=== PATIENT | male | born 1960 | race Caucasian/White ===

== ENCOUNTER 2020-05-30 13:28 | Inpatient (IN) | payer BC ==
[2020-05-30] MEDS ORDERED: NORMAL SALINE 1000 ML 1,000 ML IV ONE (14:07)
--- NOTE | 2020-05-30 14:09 | ER Document Report ---
ED Medical Screen (RME) - General Chief Complaint: Diarrhea Stated Complaint: COUGH,CONGESTION, FEVER Time Seen by Provider: 05/30/20 14:04 Information source: Patient Notes: Patient presents complaining of diarrhea that started yesterday. Patient denies any diarrhea episodes today. Patient states he has had a mild cough as well. Patient reports temperature of 99.9 at home. Patient denies any abdominal discomfort. Patient states he was concerned his symptoms may be his diverticulosis. Patient has an underlying history of diverticulosis, hypertension and diabetes. I have greeted and performed a rapid initial assessment of this patient. A comprehensive ED assessment and evaluation of the patient, analysis of test results and completion of the medical decision making process will be conducted by additional ED providers. Physical Exam - Vital signs Vitals: Temp Pulse Resp BP Pulse Ox 99.7 F 121 H 22 H 157/77 H 100 05/30/20 13:57 05/30/20 13:57 05/30/20 13:57 05/30/20 13:57 05/30/20 13:57 - Cardiovascular Rhythm: Tachycardia Heart sounds: S1 appreciated, S2 appreciated Course - Vital Signs Vital signs: Temp Pulse Resp BP Pulse Ox 99.7 F 121 H 22 H 157/77 H 100 05/30/20 13:57 05/30/20 13:57 05/30/20 13:57 05/30/20 13:57 05/30/20 13:57
--- NOTE | 2020-05-30 15:40 | RADIOLOGY REPORT (SQ) ---
EXAM DESCRIPTION: CHEST SINGLE VIEW IMAGES COMPLETED DATE/TIME: 05/30/2020 2:22 pm REASON FOR STUDY: cough COMPARISON: None. EXAM PARAMETERS: NUMBER OF VIEWS: One view. TECHNIQUE: Single frontal radiographic view of the chest acquired. RADIATION DOSE: NA LIMITATIONS: None. FINDINGS: LUNGS AND PLEURA: Lungs are hyperinflated. Biapical pleural and parenchymal scarring, sl ightly asymmetric on the right. Linear atelectasis/ scarring at the left mid lung. No focal consoli dation or pleural effusion. No pneumothorax. MEDIASTINUM AND HILAR STRUCTURES: No masses. Contour normal. HEART AND VASCULAR STRUCTURES: Heart normal in size. Normal vasculature. BONES: No acute findings. HARDWARE: None in the chest. OTHER: No other significant finding. IMPRESSION: No acute cardiopulmonary disease. Hyperinflated lungs which can be seen with obstructiv e lung disease. TECHNICAL DOCUMENTATION: JOB ID: [id number] 2010 [employer]- All Rights Reserved Reading location - IP/workstation name: [email or web address]
[2020-05-30 17:06] LABS: ALKALINE PHOSPHATASE 73 U/L (38-126); ANION GAP 9 (5-19); ASPARTATE AMINO TRANSFERASE 53 U/L (17-59); BILIRUBIN,DIRECT 0.6 mg/dL (0.0-0.4); BILIRUBIN,TOTAL 2.5 mg/dL (0.2-1.3); BLOOD UREA NITROGEN 21 mg/dL (7-20); CALCIUM 8.3 mg/dL (8.4-10.2); CARBON DIOXIDE 24 mmol/L (22-30); CHLORIDE 101 mmol/L (98-107); GLUCOSE 152 mg/dL (75-110); POTASSIUM 3.9 mmol/L (3.6-5.0); TOTAL PROTEIN 7.6 g/dL (6.3-8.2)
[2020-05-30 17:07] LABS: HEMATOCRIT 40.9 % (37.9-51.0); HEMOGLOBIN 14.1 g/dL (13.5-17.0); MEAN CORPUSCULAR HEMOGLOBIN 30.2 pg (27.0-33.4); MEAN CORPUSCULAR HGB CONC 34.6 g/dL (32.0-36.0); MEAN CORPUSCULAR VOLUME 87 fl (80-97); PLATELET COUNT 216 10^3/uL (150-450); RED BLOOD COUNT 4.69 10^6/uL (4.35-5.55); RED CELL DISTRIBUTION WIDTH 13.8 % (11.5-14.0); WHITE BLOOD COUNT 8.5 10^3/uL (4.0-10.5)
[2020-05-30 17:27] LABS: ABSOLUTE LYMPHOCYTES# (MANUAL) 0.2 10^3/uL (0.5-4.7); ABSOLUTE MONOCYTES # (MANUAL) 0.8 10^3/uL (0.1-1.4); BASOPHILS % (MANUAL) 0 % (0-2); EOSINOPHILS % (MANUAL) 0 % (0-6); LYMPHOCYTES % (MANUAL) 2 % (13-45); MONOCYTES % (MANUAL) 9 % (3-13); PLATELET COMMENT ADEQUATE; RBC MORPHOLOGY COMMENT NORMO-CYTIC/CHROMIC; SEGMENTED NEUTROPHILS % (MAN) 89 % (42-78); TOTAL CELLS COUNTED 100
--- NOTE | 2020-05-30 17:58 | ER Document Report ---
ED General - General Chief Complaint: Diarrhea Stated Complaint: COUGH,CONGESTION, FEVER Time Seen by Provider: 05/30/20 14:04 Primary Care Provider: AVILA BORJAS PA-C [Primary Care Provider] - Follow up as needed - [facility] Notes: Patient is a 59-year-old male with a past medical history of diabetes who presents with diarrhea. Patient states he had diarrhea yesterday. It was nonbloody. He states he had some abdominal pain that resolved. He is concerned that this is diverticulitis which he has had before. He mentions a low-grade fever yesterday of 100. He has no nausea or vomiting. He denies any contact with Covid patients. He has no cough or shortness of breath. Nothing makes the symptoms better or worse. - Related Data Allergies/Adverse Reactions: poison magnolia extract Allergy (Verified 05/30/20 14:09) Home Medications: metformin, HCTZ Past Medical History - General Information source: Patient - Social History Smoking Status: Current Every Day Smoker Frequency of alcohol use: Occasional Drug Abuse: None Family History: Reviewed & Not Pertinent Patient has homicidal ideation: No - Past Medical History Cardiac Medical History: Reports: Hx Hypertension Endocrine Medical History: Reports: Hx Diabetes Mellitus Type 2 Past Surgical History: Reports: Hx Rectal Surgery - colonoscopy Review of Systems - Review of Systems Notes: CONSTITUTIONAL: Positive for fatigue and low-grade fever. SKIN: No rash. HENT: No congestion, ear pain, or sore throat. CARDIOVASCULAR: No chest pain or edema. RESPIRATORY: No cough, shortness of breath, congestion, or wheezing. GASTROINTESTINAL: Positive for abdominal pain and diarrhea yesterday. GENITOURINARY: No dysuria. MUSCULOSKELETAL: No joint pain or swelling. NEUROLOGIC: No seizures. No headache, focal weakness or sensory changes. HEMATOLOGIC: No unusual bruising or bleeding. PSYCHIATRIC: No depression or anxiety. Physical Exam - Vital signs Vitals: Temp Pulse Resp BP Pulse Ox 99.7 F 121 H 22 H 157/77 H 100 05/30/20 13:57 05/30/20 13:57 05/30/20 13:57 05/30/20 13:57 05/30/20 13:57 - General General appearance: Appears well Notes: VITAL SIGNS: Tachycardia. GENERAL: No acute distress, non-toxic appearance. HEAD: Normal with no signs of head trauma. EYES: EOMI, conjunctiva normal, no discharge. EARS: Hearing grossly intact. NOSE: Normal. NECK: Normal range of motion, no tenderness, supple, no lymphadenopathy, No ad enopathy, no JVD. CHEST: Clear breath sounds bilaterally. No wheezes, rales, or rhonchi. CARDIAC: Regular rate and rhythm. VASCULAR: No Edema. ABDOMEN: Normal and soft with no tenderness, no masses or pulsatile masses. GENITOURINARY: Normal, No tenderness MUSCULOSKELETAL: Good range of motion of all major joints. Extremities without clubbing, cyanosis or edema. NEUROLOGICAL: Alert and oriented x 3. No focal sensory or strength deficits. Speech normal. Follows commands appropriately. PSYCHIATRIC: Normal Affect, judgement and mood. SKIN: Normal appearance with no rashes or lesions. Course - Re-evaluation Re-evalutation: 05/30/20 17:58 He is concerned about diverticulitis because he was having abdominal pain and diarrhea. Still mildly tachycardic. I will obtain a CT scan. Patient will also be tested for Covid. Patient CT scan is concerning for mild diverticulitis. He also has concern for a thrombosis of his inferior mesenteric artery. I did call vascular at [facility] and spoke with Dr. Ruiz. He recommended that we start him on heparin bolus and drip. He also recommended bowel rest and fluids. He recommended a repeat study to ensure that the thrombosis has resolved. He does not think he needs to be transferred as they would not do surgery on this. This is to be managed medically per vascular. I did discuss with the hospitalist who is in agreement. Patient is also in agreement. He will be treated for his diverticulitis with antibiotics. His heart rate has improved with fluids. He continues to be in no acute distress. 05/30/20 21:10 - Vital Signs Vital signs: Temp Pulse Resp BP Pulse Ox 98.6 F 109 H 18 126/73 H 95 05/30/20 19:51 05/30/20 19:51 05/30/20 19:51 05/30/20 19:51 05/30/20 19:51 - Laboratory Result Diagrams: 05/30/20 16:28 05/30/20 16:28 Laboratory results interpreted by me: 05/30/20 05/30/20 16:28 16:28 Seg Neuts % (Manual) 89 H Lymphocytes % (Manual) 2 L Abs Lymphs (Manual) 0.2 L Sodium 133.6 L BUN 21 H Glucose 152 H Calcium 8.3 L Total Bilirubin 2.5 H Direct Bilirubin 0.6 H ALT 52 H - Diagnostic Test Radiology reviewed: Image reviewed, Reports reviewed - EKG Interpretation by Me EKG shows normal: Sinus rhythm Rate: Tachycardia Rhythm: NSR When compared to previous EKG there are: Previous EKG unavailable Additional EKG results interpreted by me: 05/30/20 17:54 Sinus tachycardia at a rate of 119. QTc 434. No acute ST changes. Previous EKG is unavailable. Discharge - Discharge Clinical Impression: Diverticulitis, Tachycardia, Inferior mesenteric vein thrombosis Condition: Stable Disposition: ADMITTED INPATIENT Admitting Provider: Nate (Hospitalist) Unit Admitted: Medical Floor Referrals: AVILA BORJAS PA-C [Primary Care Provider] - Follow up as needed
--- NOTE | 2020-05-30 19:34 | RADIOLOGY REPORT (SQ) ---
EXAM DESCRIPTION: CT ABD/PELVIS WITH IV ONLY IMAGES COMPLETED DATE/TIME: 05/30/2020 7:07 pm REASON FOR STUDY: abdominal pain, diarrhea COMPARISON: None. TECHNIQUE: CT scan of the abdomen and pelvis performed using helical scanning technique with dynamic intravenous contrast injection. No oral contrast. Images reviewed with lung, soft tissue, and bone windows. Reconstructed coronal and sagittal MPR images reviewed. Delayed images for evaluation of the urinary system also acquired. All images stored on PACS. All CT scanners at this facility use dose modulation, iterative reconstruction, and/or weight based d osing when appropriate to reduce radiation dose to as low as reasonably achievable (ALARA). [facility]: Dose Right [facility]: CareDose [facility]: Dose Right [facility]: Teradose 4D [facility]: Mobento CONTRAST TYPE AND DOSE: Contrast/concentration: Isovue 350.00 mmol/ml; Total Contrast Delivered: 100 .0 ml; Total Saline Delivered: 70.0 ml RENAL FUNCTION: Creatinine 1.17 milligrams/deciliter. RADIATION DOSE: CT Rad equipment meets quality standard of care and radiation dose reduction techniq ues were employed. CTDIvol: 18.0 - 20.6 mGy. DLP: 2218 mGy-cm. LIMITATIONS: None. FINDINGS: LOWER CHEST: Sizable subpleural bleb in the anterior aspect of the left hemithorax. LIVER: The relative low attenuation of the hepatic parenchyma compared to the splenic parenchyma on t he portal venous phase is suggestive of underlying hepatic steatosis. The portal veins are patent. There is no hepatic mass. SPLEEN: 24 x 19 mm accessory splenule medial to the spleen. There is no splenomegaly or splenic mass . PANCREAS: No acute gross abnormality of the pancreas. GALLBLADDER: No acute gross abnormality of the gallbladder. ADRENAL GLANDS: 32 x 26 mm left adrenal myelolipoma. RIGHT KIDNEY AND URETER: No solid mass, hydronephrosis, nephrolithiasis, hydroureter or ureterolithia sis. LEFT KIDNEY AND URETER: No solid mass, hydronephrosis, nephrolithiasis, hydroureter or ureterolithias is. AORTA AND VESSELS: Mild atherosclerotic calcification of the abdominal aorta. There is stranding of the fat around the inferior mesenteric vein (image 39 of series 601). RETROPERITONEUM: No retroperitoneal adenopathy, hemorrhage or mass. BOWEL AND PERITONEAL CAVITY: Short segment of bowel wall thickening involving a portion of the proxim al sigmoid colon (image 73 of series 4) that contains several diverticula. There is no associated ob struction, free intraperitoneal fluid, extra- luminal abscess, pneumatosis or free intraperitoneal ga s. APPENDIX: Normal. PELVIS: The urinary bladder is contracted. ABDOMINAL WALL: The inguinal canals are patulous. BONES: Chronic fractures of the right 8th and 9th ribs. OTHER: No other findings. IMPRESSION: 1. Short segment of bowel wall thickening involving a portion of the proximal sigmoid c olon (image 73 of series 4) that contains several diverticula. Correlate with clinical findings to e xclude an early diverticulitis. 2. Stranding of the fat around the inferior mesenteric vein (image 39 of series 601) concerning for thrombosis of the vessel. 3. 32 x 26 mm left adrenal myelolipoma. 4. Hepatic steatosis. TECHNICAL DOCUMENTATION: JOB ID: [id number] Quality ID # [id number]: Final reports with documentation of one or more dose reduction techniques (e.g., Au tomated exposure control, adjustment of the mA and/or kV according to patient size, use of iterative reconstruction technique) 2010 [employer]- All Rights Reserved Reading location - IP/workstation name: [email or web address]
--- NOTE | 2020-05-30 19:42 | EKG REPORT ---
SEVERITY:- OTHERWISE NORMAL ECG - SINUS TACHYCARDIA LOW VOLTAGE IN FRONTAL LEADS : Confirmed by: Bert Zavala MD 30-May-2020 19:41:35
[2020-05-30] MEDS ORDERED: METRONIDAZOLE 500 MG/NS RTU 500 MG/100 ML RTUPB IV ONE (19:57)
[2020-05-30] MEDS ORDERED: CEFTRIAXONE 1 GM/D5W RTU 1 GM/50 ML RTUPB IV ONE (19:57)
[2020-05-30] MEDS ORDERED: HEPARIN SOD (PORCINE) 1,000 UNIT/ML 10 ML VIAL IV ONE (20:14)
[2020-05-30 20:22] LABS: INTERNATIONAL RATION (INR) 1.03; PROTHROMBIN TIME 13.7 SEC (11.4-15.4)
[2020-05-30] MEDS ORDERED: MAG HYDROX/AL HYDROX/SIMETH SUSP 30 ML UDCUP PO PRN (21:00)
[2020-05-30] MEDS ORDERED: ONDANSETRON HCL INJ/PF 4 MG/2 ML SDV IV PRN (21:00)
[2020-05-30] MEDS ORDERED: ACETAMINOPHEN 325 MG TABLET PO PRN ×2 (21:11→21:20)
[2020-05-30] MEDS ORDERED: DEXTROSE 50%-WATER 25 GM/50 ML DISP.SYRIN IV PRN ×2 (21:12)
[2020-05-30] MEDS ORDERED: DEXTROSE 40% GEL 15 GM TUBE PO PRN ×2 (21:12)
[2020-05-30] MEDS ORDERED: GLUCAGON,HUMAN RECOMB 1 MG INJ IM PRN (21:12)
[2020-05-30] MEDS: HEPARIN SODIUM,PORCINE/D5W 25,000 UNIT/250 ML RTUINJ IV PRN (21:25)
[2020-05-30] MEDS ORDERED: ALBUTEROL SULFATE HFA (90 MCG/PUFF) 8 GM MDI IH PRN (21:33)
[2020-05-30] MEDS ORDERED: NICOTINE 14 MG/24 HR PATCH.TD24 TD PRN (21:33)
--- NOTE | 2020-05-30 21:33 | PDOC H&P ---
History of Present Illness Admission Date/PCP: AVILA BORJAS PA-C Patient complains of: Diarrhea and fever History of Present Illness: ALYSE RAYGOZA is a 59 year old male with history of diverticulitis, diabetes mellitus, hypertension, who presents to the hospital for evaluation of fever and diarrhea. This started 2 days ago. He felt he was having another acute attack of his diverticulitis. He did experience some chills. The diarrhea seems to be resolving. He denies having any abdominal pain. Did have an episode of fever earlier today at home. In the ER he has not been quite noted to be febrile just yet highest temperature was 99.7F. Denies nausea or vomiting. He denies any sick contacts. Abdominal CT in the ER revealed possible early diverticulitis but also picked up mesenteric vein thrombosis. ER provider consulted with vascular surgeon at [place] Dr. Ruiz who recommended that patient did not need transfer the patient should be admitted to the hospital for medical management with heparin drip and monitored for any complications and possibly may need a repeat CT to reevaluate thrombus. Past Medical History Cardiac Medical History: Reports: Hypertension Endocrine Medical History: Reports: Diabetes Mellitus Type 2 Past Surgical History Past Surgical History: Reports: Other Social History Smoking Status: Current Every Day Smoker Electronic Cigarette use?: Yes Frequency of Alcohol Use: None Hx Recreational Drug Use: No - Advance Directive Resuscitation Status: Full Code Family History Family History: Hypertension Parental Family History Reviewed: Yes Children Family History Reviewed: Yes Sibling(s) Family History Reviewed.: Yes Medication/Allergy Allergies/Adverse Reactions: poison magnolia extract Allergy (Verified 05/30/20 14:09) Review of Systems Constitutional: PRESENT: chills, fever(s) Eyes: ABSENT: visual disturbances Ears: ABSENT: hearing changes Nose, Mouth, and Throat: ABSENT: headache(s), sore throat Cardiovascular: ABSENT: chest pain Respiratory: ABSENT: cough, dyspnea, sputum Gastrointestinal: PRESENT: diarrhea. ABSENT: abdominal pain, hematemesis, hematochezia, nausea, vomiting Genitourinary: ABSENT: dysuria Integumentary: ABSENT: diaphoresis Neurological: ABSENT: dizziness Endocrine: ABSENT: polyuria Allergic/Immunologic: PRESENT: other - Denies any rhinorrhea or sinus congestion Physical Exam Vital Signs: Temp Pulse Resp BP Pulse Ox 98.6 F 109 H 18 126/73 H 95 05/30/20 19:51 05/30/20 19:51 05/30/20 19:51 05/30/20 19:51 05/30/20 19:51 Intake & Output 05/29/20 05/30/20 05/31/20 06:59 06:59 06:59 Intake Total 1050 Balance 1050 Weight 124.3 kg General appearance: PRESENT: no acute distress, cooperative Mouth exam: PRESENT: neck supple Neck exam: ABSENT: JVD Respiratory exam: PRESENT: clear to auscultation nael, symmetrical, unlabored. ABSENT: tachypnea, wheezes Cardiovascular exam: PRESENT: RRR, +S1, +S2. ABSENT: tachycardia GI/Abdominal exam: PRESENT: normal bowel sounds, soft. ABSENT: ascites, distended, firm, guarding, rebound, rigid, tenderness Extremities exam: PRESENT: pedal edema Musculoskeletal exam: PRESENT: ambulatory Neurological exam: PRESENT: alert, awake, oriented to person, oriented to place, oriented to time, oriented to situation Psychiatric exam: ABSENT: agitated, anxious Focused psych exam: ABSENT: pressured speech Skin exam: ABSENT: jaundice Results Laboratory Results: 05/30/20 16:28 05/30/20 16:28 05/30/20 05/30/20 16:28 16:28 WBC 8.5 RBC 4.69 Hgb 14.1 Hct 40.9 MCV 87 MCH 30.2 MCHC 34.6 RDW 13.8 Plt Count 216 Seg Neutrophils % Not Reportable Sodium 133.6 L Potassium 3.9 Chloride 101 Carbon Dioxide 24 Anion Gap 9 BUN 21 H Creatinine 1.17 Est GFR ( Amer) > 60 Glucose 152 H Calcium 8.3 L Magnesium 1.9 Total Bilirubin 2.5 H AST 53 Alkaline Phosphatase 73 Total Protein 7.6 Albumin 4.0 05/30/20 16:28 Troponin I 0.013 Impressions: Chest X-Ray 05/30/20 14:07 IMPRESSION: No acute cardiopulmonary disease. Hyperinflated lungs which can be seen with obstructive lung disease. Abdomen/Pelvis CT 05/30/20 17:46 IMPRESSION: 1. Short segment of bowel wall thickening involving a portion of the proximal sigmoid colon (image 73 of series 4) that contains several diverticula. Correlate with clinical findings to exclude an early diverticulitis. 2. Stranding of the fat around the inferior mesenteric vein (image 39 of series 601) concerning for thrombosis of the vessel. 3. 32 x 26 mm left adrenal myelolipoma. 4. Hepatic steatosis. Assessment and Plan - Diagnosis (1) Inferior mesenteric vein thrombosis Is this a current diagnosis for this admission?: Yes Plan: CT of the abdomen picked up stranding around the inferior mesenteric vein concerning for thrombosis. Patient currently is asymptomatic however and not experiencing any pain. Will follow recommendations of Dr. Ruiz [vascular surgeon] and initiate patient on heparin drip and admit for monitoring. I discussed with surgery who is in agreement with plan and will follow along to help guide disposition. Monitor CBC Bowel rest for now Antibiotics (2) Acute diverticulitis Is this a current diagnosis for this admission?: Yes Plan: Currently his diverticulitis is quite mild. We will continue him on IV antibiotics though he could probably be transitioned to p.o very soon. Antiemetics if needed. (3) Fever Qualifiers: Fever type: unspecified Qualified Code(s): R50.9 - Fever, unspecified Is this a current diagnosis for this admission?: Yes Plan: Reportedly had a fever at home. So far has not had a fever yet here. May be from his early diverticulitis or other etiology. He was tested for COVID-19 and will follow up the results. Chest x-ray is negative for any evidence of pneumonia and just shows hyperinflated lungs suggestive of COPD. Denies cough. Follow-up blood culture. (4) Tobacco abuse Is this a current diagnosis for this admission?: Yes Plan: Nicotine patch offered (5) Diabetes mellitus type 2 in obese Is this a current diagnosis for this admission?: Yes Plan: Takes metformin at home. Sliding scale insulin and Accu-Cheks while inpatient. (6) Obesity (BMI 30-39.9) Is this a current diagnosis for this admission?: Yes - Time Time Spent with patient: 35 or more minutes Anticipated Discharge Disposition: Home, Self Care Anticipated Discharge Timeframe: within 48 hours
[2020-05-30] MEDS: FAMOTIDINE INJ/PF 20 MG/2 ML SDV IV SCH (21:46)
[2020-05-30] MEDS ORDERED: HEPARIN SOD (PORCINE) 1,000 UNIT/ML 10 ML VIAL IV PRN (23:16)
[2020-05-31] MEDS: METRONIDAZOLE 500 MG/NS RTU 500 MG/100 ML RTUPB IV SCH ×5 (01:23→23:58)
[2020-05-31] MEDS: NORMAL SALINE 1000 ML 1,000 ML IV PRN ×3 (01:23→23:58)
[2020-05-31] MEDS: INSULIN LISPRO 100 UNIT/ML 3 ML VIAL SUBCUT SCH ×4 (03:11→18:15)
[2020-05-31 03:20] LABS: HEMOGLOBIN 12.5 g/dL (13.5-17.0); MEAN CORPUSCULAR HEMOGLOBIN 29.6 pg (27.0-33.4); MEAN CORPUSCULAR HGB CONC 34.7 g/dL (32.0-36.0); MEAN CORPUSCULAR VOLUME 85 fl (80-97); PLATELET COUNT 180 10^3/uL (150-450); RED BLOOD COUNT 4.21 10^6/uL (4.35-5.55); RED CELL DISTRIBUTION WIDTH 13.8 % (11.5-14.0); WHITE BLOOD COUNT 8.1 10^3/uL (4.0-10.5)
[2020-05-31 03:55] LABS: ANION GAP 11 (5-19); BLOOD UREA NITROGEN 20 mg/dL (7-20); CALCIUM 7.6 mg/dL (8.4-10.2); CARBON DIOXIDE 21 mmol/L (22-30); CHLORIDE 103 mmol/L (98-107); GLUCOSE 133 mg/dL (75-110); PHOSPHORUS 2.6 mg/dL (2.5-4.5); POTASSIUM 3.3 mmol/L (3.6-5.0)
[2020-05-31 04:03] LABS: A TYPE INFLUENZA AG NEGATIVE (NEGATIVE); B INFLUENZA AG NEGATIVE (NEGATIVE)
[2020-05-31 04:57] LABS: D-DIMER 1.69 ug/mL (0.00-0.50)
--- NOTE | 2020-05-31 06:50 | PDOC CONSULTATION ---
Consultation Consult Date: 05/31/20 Provider Consulted: SURGICAL SURGICALIST MD Consult reason:: IMV thrombosis History of Present Illness Admission Date/PCP: 05/30/20 21:21 AVILA BORJAS PA-C History of Present Illness: ALYSE RAYGOZA is a 59 year old male seen in consultation at the request of the hospitalist service. The patient reports a 2-day history of fever and intermittent diarrhea. He denies any abdominal pain, melena, hematochezia, hematemesis, chest pain, shortness of breath, headache, blurry vision, dizziness, orthostasis. He denies any left lower quadrant abdominal cramping. He presented to the hospital last night because he wanted "to be tested for Covid" due to his fevers and diarrhea. He has had diverticulitis in the past. He denies any sick contacts. He does use e-cigarettes. Past Medical History Cardiac Medical History: Reports: Hypertension Endocrine Medical History: Reports: Diabetes Mellitus Type 2 Psychiatric Medical History: Denies: Depression Past Surgical History Past Surgical History: Reports: Other Social History Smoking Status: Former Smoker Electronic Cigarette use?: Yes Frequency of Alcohol Use: None Hx Recreational Drug Use: No Drugs: None - Advance Directive Resuscitation Status: Full Code Family History Family History: Hypertension Parental Family History Reviewed: Yes Children Family History Reviewed: Yes Sibling(s) Family History Reviewed.: Yes Medication/Allergy Home Medications: Hydrochlorothiazide 12.5 mg PO DAILY 05/30/20 Metformin HCl [Metformin HCl ER] 500 mg PO DAILY 05/30/20 Allergies/Adverse Reactions: poison magnolia extract Allergy (Verified 05/30/20 14:09) Review of Systems Constitutional: PRESENT: fever(s). ABSENT: anorexia, chills, fatigue, headache(s), night sweats Eyes: ABSENT: visual disturbances Ears: ABSENT: hearing changes Nose, Mouth, and Throat: ABSENT: sore throat Cardiovascular: ABSENT: chest pain Respiratory: ABSENT: cough, dyspnea Gastrointestinal: PRESENT: diarrhea. ABSENT: abdominal pain, bloating, hematemesis, hematochezia, melena, nausea, vomiting Genitourinary: ABSENT: dysuria Musculoskeletal: ABSENT: back pain Neurological: ABSENT: confusion, convulsions, dizziness Psychiatric: ABSENT: anxiety, depression Endocrine: ABSENT: cold intolerance, heat intolerance Hematologic/Lymphatic: ABSENT: easy bleeding, easy bruising Physical Exam Vital Signs: Temp Pulse Resp BP Pulse Ox 98.5 F 100 18 131/69 H 99 05/31/20 05:24 05/31/20 03:44 05/31/20 03:44 05/31/20 03:44 05/31/20 03:44 Intake & Output 05/29/20 05/30/20 05/31/20 06:59 06:59 06:59 Intake Total 1377 Output Total 0 Balance 1377 Weight 123.5 kg General appearance: PRESENT: no acute distress, obese Head exam: PRESENT: atraumatic, normocephalic Eye exam: PRESENT: EOMI, PERRLA. ABSENT: scleral icterus Mouth exam: PRESENT: moist, neck supple Neck exam: ABSENT: meningismus, tenderness, thyromegaly, tracheal deviation Respiratory exam: PRESENT: unlabored. ABSENT: tachypnea, wheezes Cardiovascular exam: ABSENT: tachycardia Pulses: PRESENT: normal radial pulses Vascular exam: PRESENT: normal capillary refill GI/Abdominal exam: PRESENT: soft. ABSENT: distended, firm, guarding, rebound, rigid, tenderness Rectal exam: PRESENT: deferred Extremities exam: ABSENT: clubbing Musculoskeletal exam: ABSENT: deformity Neurological exam: PRESENT: alert, awake, oriented to person, oriented to place, oriented to time, oriented to situation, CN II-XII grossly intact Psychiatric exam: ABSENT: agitated, anxious, depressed Focused psych exam: ABSENT: delusional Skin exam: ABSENT: cyanosis, erythema, jaundice Results Laboratory Results: 05/31/20 03:12 05/31/20 03:12 05/30/20 05/30/20 05/31/20 16:28 16:28 03:12 WBC 8.5 8.1 RBC 4.69 4.21 L Hgb 14.1 12.5 L Hct 40.9 36.0 L MCV 87 85 MCH 30.2 29.6 MCHC 34.6 34.7 RDW 13.8 13.8 Plt Count 216 180 Seg Neutrophils % Not Reportable Sodium 133.6 L Potassium 3.9 Chloride 101 Carbon Dioxide 24 Anion Gap 9 BUN 21 H Creatinine 1.17 Est GFR ( Amer) > 60 Glucose 152 H Calcium 8.3 L Phosphorus Magnesium 1.9 Total Bilirubin 2.5 H AST 53 Alkaline Phosphatase 73 Total Protein 7.6 Albumin 4.0 05/31/20 03:12 WBC RBC Hgb Hct MCV MCH MCHC RDW Plt Count Seg Neutrophils % Sodium 134.7 L Potassium 3.3 L Chloride 103 Carbon Dioxide 21 L Anion Gap 11 BUN 20 Creatinine 0.88 Est GFR ( Amer) > 60 Glucose 133 H Calcium 7.6 L Phosphorus 2.6 Magnesium 1.6 Total Bilirubin AST Alkaline Phosphatase Total Protein Albumin 05/30/20 16:28 Troponin I 0.013 Impressions: Chest X-Ray 05/30/20 14:07 IMPRESSION: No acute cardiopulmonary disease. Hyperinflated lungs which can be seen with obstructive lung disease. Abdomen/Pelvis CT 05/30/20 17:46 IMPRESSION: 1. Short segment of bowel wall thickening involving a portion of the proximal sigmoid colon (image 73 of series 4) that contains several diverticula. Correlate with clinical findings to exclude an early diverticulitis. 2. Stranding of the fat around the inferior mesenteric vein (image 39 of series 601) concerning for thrombosis of the vessel. 3. 32 x 26 mm left adrenal myelolipoma. 4. Hepatic steatosis. Assessment & Plan - Diagnosis (1) Acute diverticulitis Is this a current diagnosis for this admission?: Yes (2) Inferior mesenteric vein thrombosis Is this a current diagnosis for this admission?: Yes - Plan Summary Plan Summary: 59-year-old male with mild diverticulitis and a likely inferior mesenteric vein thrombosis. The patient has no abdominal pain. Continue with supportive care, antibiotics, IV fluids, and heparinization. At present, the patient has no abdominal symptomatology. As long as his symptoms continue to be mild, he may be discharged home with antibiotics and anticoagulation. Surgery will continue to follow closely with you.
[2020-05-31 07:45] LABS: APPEARANCE,URINE CLEAR; BILIRUBIN,URINE NEGATIVE (NEGATIVE); COLOR,URINE AMBER; GLUCOSE, URINE NEGATIVE (NEGATIVE); KETONES,URINE NEGATIVE (NEGATIVE); LEUKOCYTE ESTERASE,URINE TRACE (NEGATIVE); NITRITE,URINE NEGATIVE (NEGATIVE); PROTEIN,URINE 100 mg/dL (NEGATIVE); URINE SPECIFIC GRAVITY 1.049
[2020-05-31] MEDS ORDERED: INFLUENZA QUAD (6MOS+) 2020-21 VAC 0.5 ML SYR IM ONE (08:00)
[2020-05-31] MEDS: HYDROCHLOROTHIAZIDE 25 MG TABLET PO SCH (09:39)
[2020-05-31] MEDS: FAMOTIDINE INJ/PF 20 MG/2 ML SDV IV SCH ×2 (09:40→21:02)
[2020-05-31] MEDS: HEPARIN SODIUM,PORCINE/D5W 25,000 UNIT/250 ML RTUINJ IV PRN (12:26)
--- NOTE | 2020-05-31 14:57 | PDOC PROGRESS REPORT ---
Subjective Date:: 05/31/20 Subjective:: History of Present Illness: ALYSE RAYGOZA is a 59 year old male with history of diverticulitis, diabetes mellitus, hypertension, who presents to the hospital for evaluation of fever and diarrhea. This started 2 days ago. He felt he was having another acute attack of his diverticulitis. He did experience some chills. The diarrhea seems to be resolving. He denies having any abdominal pain. Did have an episode of fever earlier today at home. In the ER he has not been quite noted to be febrile just yet highest temperature was 99.7F. Denies nausea or vomiting. He denies any sick contacts. Abdominal CT in the ER revealed possible early diverticulitis but also picked up mesenteric vein thrombosis. ER provider consulted with vascular surgeon at [place] Dr. Ruiz who recommended that patient did not need transfer the patient should be admitted to the hospital for medical management with heparin drip and monitored for any complications and possibly may need a repeat CT to reevaluate thrombus. Hospital course: 05/31/2020: Patient seen and examined. He is comfortable. Essentially has no symptoms. Reason For Visit: MESENTERIC VEIN THROMBOSIS,FEVER,DIVERTICULITIS Physical Exam Vital Signs: Temp Pulse Resp BP Pulse Ox 98.5 F 93 18 119/55 L 96 05/31/20 10:00 05/31/20 07:26 05/31/20 07:26 05/31/20 07:26 05/31/20 07:26 Intake & Output 05/30/20 05/31/20 06/01/20 06:59 06:59 06:59 Intake Total 1477 1188 Output Total 0 575 Balance 1477 613 Weight 272 lb 4.334 oz Exam: General appearance: PRESENT: no acute distress, cooperative Mouth exam: PRESENT: neck supple Neck exam: ABSENT: JVD Respiratory exam: PRESENT: clear to auscultation nael, symmetrical, unlabored. ABSENT: tachypnea, wheezes Cardiovascular exam: PRESENT: RRR, +S1, +S2. ABSENT: tachycardia GI/Abdominal exam: PRESENT: normal bowel sounds, soft. ABSENT: ascites, dis tended, firm, guarding, rebound, rigid, tenderness Extremities exam: PRESENT: pedal edema Musculoskeletal exam: PRESENT: ambulatory Neurological exam: PRESENT: alert, awake, oriented to person, oriented to place, oriented to time, oriented to situation Psychiatric exam: ABSENT: agitated, anxious Focused psych exam: ABSENT: pressured speech Skin exam: ABSENT: jaundice Results Laboratory Results: 05/31/20 03:12 05/31/20 03:12 05/30/20 05/30/20 05/31/20 16:28 16:28 03:12 WBC 8.5 8.1 RBC 4.69 4.21 L Hgb 14.1 12.5 L Hct 40.9 36.0 L MCV 87 85 MCH 30.2 29.6 MCHC 34.6 34.7 RDW 13.8 13.8 Plt Count 216 180 Seg Neutrophils % Not Reportable Sodium 133.6 L Potassium 3.9 Chloride 101 Carbon Dioxide 24 Anion Gap 9 BUN 21 H Creatinine 1.17 Est GFR ( Amer) > 60 Glucose 152 H Calcium 8.3 L Phosphorus Magnesium 1.9 Total Bilirubin 2.5 H AST 53 Alkaline Phosphatase 73 Total Protein 7.6 Albumin 4.0 Urine Color Urine Appearance Urine pH Ur Specific [place] Urine Protein Urine Glucose (UA) Urine Ketones Urine Blood Urine Nitrite Ur Leukocyte Esterase Urine WBC (Auto) Urine RBC (Auto) 05/31/20 05/31/20 03:12 06:45 WBC RBC Hgb Hct MCV MCH MCHC RDW Plt Count Seg Neutrophils % Sodium 134.7 L Potassium 3.3 L Chloride 103 Carbon Dioxide 21 L Anion Gap 11 BUN 20 Creatinine 0.88 Est GFR ( Amer) > 60 Glucose 133 H Calcium 7.6 L Phosphorus 2.6 Magnesium 1.6 Total Bilirubin AST Alkaline Phosphatase Total Protein Albumin Urine Color DIAMOND Urine Appearance CLEAR Urine pH 5.0 Ur Specific [place] 1.049 Urine Protein 100 H Urine Glucose (UA) NEGATIVE Urine Ketones NEGATIVE Urine Blood SMALL H Urine Nitrite NEGATIVE Ur Leukocyte Esterase TRACE H Urine WBC (Auto) 3 Urine RBC (Auto) 13 05/30/20 16:28 Troponin I 0.013 Impressions: Chest X-Ray 05/30/20 14:07 IMPRESSION: No acute cardiopulmonary disease. Hyperinflated lungs which can be seen with obstructive lung disease. Abdomen/Pelvis CT 05/30/20 17:46 IMPRESSION: 1. Short segment of bowel wall thickening involving a portion of the proximal sigmoid colon (image 73 of series 4) that contains several diverticula. Correlate with clinical findings to exclude an early diverticulitis. 2. Stranding of the fat around the inferior mesenteric vein (image 39 of series 601) concerning for thrombosis of the vessel. 3. 32 x 26 mm left adrenal myelolipoma. 4. Hepatic steatosis. Assessment and Plan - Plan Summary Summary: (1) Inferior mesenteric vein thrombosis CT of the abdomen picked up stranding around the inferior mesenteric vein concerning for thrombosis. Patient currently is asymptomatic however and not experiencing any pain. Will follow recommendations of Dr. Ruiz [vascular surgeon] and initiate patient on heparin drip and admit for monitoring. Minimal to no symptoms at the moment. Discharge once cleared by surgery. (2) Acute diverticulitis Currently his diverticulitis is quite mild. We will continue him on IV antibiotics though he could probably be transitioned to p.o very soon. Antiemetics if needed. (3) Fever Reportedly had a fever at home. So far has not had a fever yet here. May be from his early diverticulitis or other etiology. He was tested for COVID-19 and will follow up the results. Chest x-ray is negative for any evidence of pneumonia and just shows hyperinflated lungs suggestive of COPD. Denies cough. Follow-up blood culture. (4) Tobacco abuse Nicotine patch offered (5) Diabetes mellitus type 2 in obese Takes metformin at home. Sliding scale insulin and Accu-Cheks while inpatient. (6) Obesity (BMI 30-39.9) Patient was counseled - Time Anticipated Discharge Disposition: Home, Self Care Anticipated Discharge Timeframe: within 72 hours
[2020-05-31] MEDS ORDERED: CEFTRIAXONE 2 GM/D5W RTU 2 GM/50 ML RTUPB IV SCH (18:00)
[2020-06-01] MEDS: INSULIN LISPRO 100 UNIT/ML 3 ML VIAL SUBCUT SCH ×2 (00:06→06:36)
[2020-06-01] MEDS: HEPARIN SODIUM,PORCINE/D5W 25,000 UNIT/250 ML RTUINJ IV PRN (02:14)
[2020-06-01] MEDS: METRONIDAZOLE 500 MG/NS RTU 500 MG/100 ML RTUPB IV SCH (05:15)
[2020-06-01 05:56] LABS: APPEARANCE,URINE CLEAR; BILIRUBIN,URINE NEGATIVE (NEGATIVE); COLOR,URINE AMBER; GLUCOSE, URINE NEGATIVE (NEGATIVE); KETONES,URINE 20 mg/dL (NEGATIVE); LEUKOCYTE ESTERASE,URINE SMALL (NEGATIVE); NITRITE,URINE NEGATIVE (NEGATIVE); PROTEIN,URINE 30 mg/dL (NEGATIVE)
[2020-06-01 06:13] LABS: HEMATOCRIT 32.7 % (37.9-51.0); HEMOGLOBIN 11.4 g/dL (13.5-17.0); MEAN CORPUSCULAR HGB CONC 34.8 g/dL (32.0-36.0); MEAN CORPUSCULAR VOLUME 86 fl (80-97); PLATELET COUNT 199 10^3/uL (150-450); RED BLOOD COUNT 3.79 10^6/uL (4.35-5.55); RED CELL DISTRIBUTION WIDTH 13.5 % (11.5-14.0); WHITE BLOOD COUNT 5.9 10^3/uL (4.0-10.5)
[2020-06-01] MEDS: HYDROCHLOROTHIAZIDE 25 MG TABLET PO SCH (09:50)
[2020-06-01] MEDS: FAMOTIDINE INJ/PF 20 MG/2 ML SDV IV SCH (09:51)
--- NOTE | 2020-06-01 11:14 | PDOC PROGRESS REPORT ---
Subjective Date:: 06/01/20 Subjective:: Patient comfortable, denies abdominal pain nausea vomiting, reports normal bowel movement today with soft stools no blood noted, feels hungry Reason For Visit: MESENTERIC VEIN THROMBOSIS,FEVER,DIVERTICULITIS Physical Exam Vital Signs: Temp Pulse Resp BP Pulse Ox 97.4 F 78 18 143/89 H 97 06/01/20 10:00 06/01/20 08:17 06/01/20 08:17 06/01/20 08:17 06/01/20 08:17 Intake & Output 05/31/20 06/01/20 06/02/20 06:59 06:59 06:59 Intake Total 1477 2659 100 Output Total 0 1375 Balance 1477 1284 100 Weight 123.5 kg 109.4 kg General appearance: PRESENT: no acute distress, cooperative, obese Respiratory exam: PRESENT: clear to auscultation nael Cardiovascular exam: PRESENT: RRR GI/Abdominal exam: PRESENT: normal bowel sounds - Present, soft, tenderness - None Results Laboratory Results: 06/01/20 05:29 05/31/20 03:12 06/01/20 06/01/20 04:50 05:29 WBC 5.9 RBC 3.79 L Hgb 11.4 L Hct 32.7 L MCV 86 MCH 30.0 MCHC 34.8 RDW 13.5 Plt Count 199 Urine Color DIAMOND Urine Appearance CLEAR Urine pH 5.0 Ur Specific [place] 1.020 Urine Protein 30 H Urine Glucose (UA) NEGATIVE Urine Ketones 20 H Urine Blood SMALL H Urine Nitrite NEGATIVE Ur Leukocyte Esterase SMALL H Urine WBC (Auto) 3 Urine RBC (Auto) 3 05/30/20 16:28 Troponin I 0.013 Impressions: Chest X-Ray 05/30/20 14:07 IMPRESSION: No acute cardiopulmonary disease. Hyperinflated lungs which can be seen with obstructive lung disease. Abdomen/Pelvis CT 05/30/20 17:46 IMPRESSION: 1. Short segment of bowel wall thickening involving a portion of the proximal sigmoid colon (image 73 of series 4) that contains several diverticula. Correlate with clinical findings to exclude an early diverticulitis. 2. Stranding of the fat around the inferior mesenteric vein (image 39 of series 601) concerning for thrombosis of the vessel. 3. 32 x 26 mm left adrenal myelolipoma. 4. Hepatic steatosis. Assessment & Plan - Diagnosis (1) chronic diverticulitis Is this a current diagnosis for this admission?: Yes (2) Inferior mesenteric vein thrombosis Is this a current diagnosis for this admission?: Yes (3) Fever Qualifiers: Fever type: unspecified Qualified Code(s): R50.9 - Fever, unspecified Is this a current diagnosis for this admission?: Yes - Time Anticipated Discharge Disposition: Home, Self Care Anticipated Discharge Timeframe: within 24 hours - Plan Summary Plan Summary: Assessment: Low-grade fever, diarrhea without abdominal pain or leukocytosis History of acute diverticulitis about 15 years ago with sigmoid colon narrowing he had obstipation for several days and a follow-up colonoscopy demonstrated a benign colonic stricture History of multiple episodes of diarrhea low-grade fever during the past years Initial CT scan abdomen pelvis reading was significant for acute diverticulitis and IMV thrombosis; however, the clinical picture does not fit the CT reading which most likely identifies the sequelae of the old sigmoid diverticulosis; The IMV thrombosis identified on the CT scan as well is most likely chronic, as the patient abdominal abdomen is completely benign and the stools are soft without blood Colonoscopy 4 years ago, significant only for diverticulosis without any other pathology Plan: Patient can be discharged to home today 1) Follow-up with his primary care physician in 1 to 2 weeks 2) Due to the questionable IV thrombosis diagnosis (as per review by a second radiologist), I would keep the patient on low-dose aspirin 81 mg daily for the next 6 months. I would not anticoagulate him at this point as the patient is completely asymptomatic and this finding. This most likely this represented ch ronic IV thrombosis rather than an acute one. 3) Low fiber diet to prevent constipation due to the colonic narrowing 4) Repeat colonoscopy in 3 months I will sign off. Please call me with questions
--- NOTE | 2020-06-01 11:26 | PDOC DISCHARGE SUMMARY ---
Impression - Admit/DC Date/PCP Admission Date/Primary Care Provider: 05/30/20 21:21 AVILA BORJAS PA-C Discharge Date: 06/01/20 - Assessment Summary: (1) Inferior mesenteric vein thrombosis CT of the abdomen picked up stranding around the inferior mesenteric vein concerning for thrombosis. Patient currently is asymptomatic however and not experiencing any pain. Will follow recommendations of Dr. Ruiz [vascular surgeon] and initiate patient on heparin drip and admit for monitoring. Minimal to no symptoms at the moment. Discharge once cleared by surgery. (2) Acute diverticulitis Currently his diverticulitis is quite mild. We will continue him on IV antibiotics though he could probably be transitioned to p.o very soon. Antiemetics if needed. (3) Fever Reportedly had a fever at home. So far has not had a fever yet here. May be from his early diverticulitis or other etiology. He was tested for COVID-19 and will follow up the results. Chest x-ray is negative for any evidence of pneumonia and just shows hyperinflated lungs suggestive of COPD. Denies cough. Follow-up blood culture. (4) Tobacco abuse Nicotine patch offered (5) Diabetes mellitus type 2 in obese Takes metformin at home. Sliding scale insulin and Accu-Cheks while inpatient. (6) Obesity (BMI 30-39.9) Patient was counseled - Additional Information Resuscitation Status: Full Code Discharge Diet: As Tolerated Discharge Activity: Activity As Tolerated Referrals: AVILA BORJAS PA-C [Primary Care Provider] - Follow up as needed Home Medications: Hydrochlorothiazide 12.5 mg PO DAILY 05/30/20 Metformin HCl [Metformin HCl ER] 500 mg PO DAILY 05/30/20 Aspirin [Aspirin 81 mg Chewable Tablet] 81 mg PO DAILY tab.[email or web address] 06/01/20 Nicotine [Nicoderm 14 mg/24 Hr Transdermal Patch] 1 each TD DAILYP PRN patch.[email or web address] 06/01/20 History of Present Illiness History of Present Illness: ALYSE RAYGOZA is a 59 year old male with history of diverticulitis, diabetes mellitus, hypertension, who presents to the hospital for evaluation of fever and diarrhea. This started 2 days ago. He felt he was having another acute attack of his diverticulitis. He did experience some chills. The diarrhea seems to be resolving. He denies having any abdominal pain. Did have an episode of fever earlier today at home. In the ER he has not been quite noted to be febrile just yet highest temperature was 99.7F. Denies nausea or vomiting. He denies any sick contacts. Abdominal CT in the ER revealed possible early diverticulitis but also picked up mesenteric vein thrombosis. ER provider consulted with vascular surgeon at [place] Dr. Ruiz who recommended that patient did not need transfer the patient should be admitted to the hospital for medical management with heparin drip and monitored for any complications and possibly may need a repeat CT to reevaluate thrombus. Hospital course: 05/31/2020: Patient seen and examined. He is comfortable. Essentially has no symptoms. Hospital Course Hospital Course: Summary: (1) Inferior mesenteric vein thrombosis CT of the abdomen picked up stranding around the inferior mesenteric vein concerning for thrombosis. Patient is asymptomatic however and not experiencing any pain. Recommendations of Dr. Ruiz [vascular surgeon] to initiate patient on heparin drip and admit for monitoring. Patient continues to exhibit no symptoms. Discussed with Dr. Felton from surgery. Since the patient is completely asymptomatic and this is probably incidental finding. He also discussed with urology and this appeared to be chronic in nature if it is actually true. He does not recommend anticoagulation and recommends low-dose aspirin instead. (2) Acute diverticulitis Patient has history of diverticulitis. He is afebrile and white count is normal. He is completely asymptomatic. He was initially started on antibiotics on admission. Again we discussed with Dr. Felton of surgery and he believes that the findings on the CT scan are from prior infection. We will not d ischarge on any antibiotics. (3) Fever Reportedly had a fever at home. So far has not had a fever yet here. He was tested for COVID-19 and will follow up the results. Chest x-ray is negative for any evidence of pneumonia and just shows hyperinflated lungs suggestive of COPD. Denies cough. Cultures are negative. (4) Tobacco abuse Nicotine patch offered (5) Diabetes mellitus type 2 in obese Takes metformin at home. Sliding scale insulin and Accu-Cheks while inpatient. (6) Obesity (BMI 30-39.9) Patient was counseled Patient feeling a lot better and wants to go home today. Physical Exam Vital Signs: Temp Pulse Resp BP Pulse Ox 97.4 F 78 18 143/89 H 97 06/01/20 10:00 06/01/20 08:17 06/01/20 08:17 06/01/20 08:17 06/01/20 08:17 Intake & Output 05/31/20 06/01/20 06/02/20 06:59 06:59 06:59 Intake Total 1477 2659 100 Output Total 0 1375 Balance 1477 1284 100 Weight 272 lb 4.334 oz 241 lb 2.971 oz Exam: General appearance: PRESENT: no acute distress, cooperative Mouth exam: PRESENT: neck supple Neck exam: ABSENT: JVD Respiratory exam: PRESENT: clear to auscultation nael, symmetrical, unlabored. ABSENT: tachypnea, wheezes Cardiovascular exam: PRESENT: RRR, +S1, +S2. ABSENT: tachycardia GI/Abdominal exam: PRESENT: normal bowel sounds, soft. ABSENT: ascites, distended, firm, guarding, rebound, rigid, tenderness Extremities exam: PRESENT: pedal edema Musculoskeletal exam: PRESENT: ambulatory Neurological exam: PRESENT: alert, awake, oriented to person, oriented to place, oriented to time, oriented to situation Psychiatric exam: ABSENT: agitated, anxious Focused psych exam: ABSENT: pressured speech Skin exam: ABSENT: jaundice Results Laboratory Results: WBC 5.9 10^3/uL (4.0-10.5) 06/01/20 05:29 RBC 3.79 10^6/uL (4.35-5.55) L 06/01/20 05:29 Hgb 11.4 g/dL (13.5-17.0) L 06/01/20 05:29 Hct 32.7 % (37.9-51.0) L 06/01/20 05:29 MCV 86 fl (80-97) 06/01/20 05:29 MCH 30.0 pg (27.0-33.4) 06/01/20 05:29 MCHC 34.8 g/dL (32.0-36.0) 06/01/20 05:29 RDW 13.5 % (11.5-14.0) 06/01/20 05:29 Plt Count 199 10^3/uL (150-450) 06/01/20 05:29 Lymph % (Auto) Not Reportable 05/30/20 16:28 [place] % (Auto) Not Reportable 05/30/20 16:28 Eos % (Auto) Not Reportable 05/30/20 16:28 Baso % (Auto) Not Reportable 05/30/20 16:28 Absolute Neuts (auto) Not Reportable 05/30/20 16: Absolute Lymphs (auto) Not Reportable 05/30/20 16:28 Absolute Monos (auto) Not Reportable 05/30/20 16:28 Absolute Eos (auto) Not Reportable 05/30/20 16:28 Absolute Basos (auto) Not Reportable 05/30/20 16:28 Total Counted 100 05/30/20 16: Seg Neutrophils % Not Reportable 05/30/20 16: Seg Neuts % (Manual) 89 % (42-78) H 05/30/20 16: Lymphocytes % (Manual) 2 % (13-45) L 05/30/20 16: Monocytes % (Manual) 9 % (3-13) 05/30/20 16: Eosinophils % (Manual) 0 % (0-6) 05/30/20 16: Basophils % (Manual) 0 % (0-2) 05/30/20 16: Abs Neuts (Manual) 7.6 10^3/uL (1.7-8.2) 05/30/20 16: Abs Lymphs (Manual) 0.2 10^3/uL (0.5-4.7) L 05/30/20 16:28 Abs Monocytes (Manual) 0.8 10^3/uL (0.1-1.4) 05/30/20 16: Absolute Eos (Manual) 0.0 10^3/uL (0.0-0.6) 05/30/20 16:28 Abs Basophils (Manual) 0.0 10^3/uL (0.0-0.2) 05/30/20 16: Platelet Comment ADEQUATE 05/30/20 16: RBC Morph Comment NORMO-CYTIC/CHROMIC 05/30/20 16: PT 13.7 SEC (11.4-15.4) 05/30/20 16: INR 1.03 05/30/20 16: APTT 65.4 SEC (23.5-35.8) H 06/01/20 05:29 D-Dimer 1.69 ug/mL (0.00-0.50) H 05/31/20 04:29 Sodium 134.7 mmol/L (137-145) L 05/31/20 03:12 Potassium 3.3 mmol/L (3.6-5.0) L 05/31/20 03:12 Chloride 103 mmol/L (98-107) 05/31/20 03:12 Carbon Dioxide 21 mmol/L (22-30) L 05/31/20 03:12 Anion Gap 11 (5-19) 05/31/20 03:12 BUN 20 mg/dL (7-20) 05/31/20 03:12 Creatinine 0.88 mg/dL (0.52-1.25) 05/31/20 03:12 Est GFR ( Amer) > 60 (>60) 05/31/20 03:12 Est GFR (MDRD) Non-Af > 60 (>60) 05/31/20 03:12 Glucose 133 mg/dL (75-110) H 05/31/20 03:12 POC Glucose 116 mg/dL (70-110) H 06/01/20 06:10 Calcium 7.6 mg/dL (8.4-10.2) L 05/31/20 03:12 Phosphorus 2.6 mg/dL (2.5-4.5) 05/31/20 03:12 Magnesium 1.6 mg/dL (1.6-2.3) 05/31/20 03:12 Total Bilirubin 2.5 mg/dL (0.2-1.3) H 05/30/20 16:28 Direct Bilirubin 0.6 mg/dL (0.0-0.4) H 05/30/20 16:28 Neonat Total Bilirubin Not Reportable 05/30/20 16:28 Neonat Direct Bilirubin Not Reportable 05/30/20 16:28 Neonat Indirect Bili Not Reportable 05/30/20 16:28 AST 53 U/L (17-59) 05/30/20 16:28 ALT 52 U/L (<50) H 05/30/20 16:28 Alkaline Phosphatase 73 U/L (38-126) 05/30/20 16:28 Troponin I 0.013 ng/mL 05/30/20 16:28 Total Protein 7.6 g/dL (6.3-8.2) 05/30/20 16:28 Albumin 4.0 g/dL (3.5-5.0) 05/30/20 16:28 Urine Color DIAMOND 06/01/20 04:50 Urine Appearance CLEAR 06/01/20 04:50 Urine pH 5.0 (5.0-9.0) 06/01/20 04:50 Ur Specific [place] 1.020 06/01/20 04:50 Urine Protein 30 mg/dL (NEGATIVE) H 06/01/20 04:50 Urine Glucose (UA) NEGATIVE mg/dL (NEGATIVE) 06/01/20 04:50 Urine Ketones 20 mg/dL (NEGATIVE) H 06/01/20 04:50 Urine Blood SMALL (NEGATIVE) H 06/01/20 04:50 Urine Nitrite NEGATIVE (NEGATIVE) 06/01/20 04:50 Urine Bilirubin NEGATIVE (NEGATIVE) 06/01/20 04:50 Urine Urobilinogen 4.0 mg/dL (<2.0) H 06/01/20 04:50 Ur Leukocyte Esterase SMALL (NEGATIVE) H 06/01/20 04:50 Urine WBC (Auto) 3 /HPF 06/01/20 04:50 Urine RBC (Auto) 3 /HPF 06/01/20 04:50 Urine Mucus (Auto) RARE /LPF 06/01/20 04:50 Urine Ascorbic Acid NEGATIVE (NEGATIVE) 06/01/20 04:50 COVID-19 Source See comment 05/30/20 16:24 COVID-19 (KIMO) Not Detected (Not Detect) 05/30/20 16:24 Influenza A (Rapid) NEGATIVE (NEGATIVE) 05/30/20 16:24 Influenza B (Rapid) NEGATIVE (NEGATIVE) 05/30/20 16:24 05/30/20 16:28 Troponin I 0.013 Impressions: Chest X-Ray 05/30/20 14:07 IMPRESSION: No acute cardiopulmonary disease. Hyperinflated lungs which can be seen with obstructive lung disease. Abdomen/Pelvis CT 05/30/20 17:46 IMPRESSION: 1. Short segment of bowel wall thickening involving a portion of the proximal sigmoid colon (image 73 of series 4) that contains several diverticula. Correlate with clinical findings to exclude an early diverticulitis. 2. Stranding of the fat around the inferior mesenteric vein (image 39 of series 601) concerning for thrombosis of the vessel. 3. 32 x 26 mm left adrenal myelolipoma. 4. Hepatic steatosis. Stroke Is this a Stroke Patient?: No Acute Heart Failure Is this a Heart Failure Patient?: No
[2020-06-01 11:32] VITALS: BP 132/72
[2020-06-02] MEDS ORDERED: ASPIRIN 81 MG TABLET, CHEWABLE PO SCH (10:00)
== END 2020-06-01 12:43 | disposition home or self-care (01) | DRG 391 ==
LOC: ER 13:28 → EH 21:21 → 3W 23:12
PROVIDERS: ADMIT Internal Medicine; ATTEND Family Medicine
DX: K57.32 Diverticulitis of large intestine without perforation or abscess without bleeding (principal); K55.059 Acute (reversible) ischemia of intestine, part and extent unspecified; E11.9 Type 2 diabetes mellitus without complications; F17.210 Nicotine dependence, cigarettes, uncomplicated; I10 Essential (primary) hypertension; R00.0 Tachycardia, unspecified; E66.9 Obesity, unspecified; Z68.33 Body mass index [BMI] 33.0-33.9, adult; Z79.84 Long term (current) use of oral hypoglycemic drugs; Z79.82 Long term (current) use of aspirin; Z20.828 Contact with and (suspected) exposure to other viral communicable diseases; Z82.49 Family history of ischemic heart disease and other diseases of the circulatory system
CPT/HCPCS: 36415; 71045; 74177; 80048; 80053; 81001; 82962; 83735; 84100; 84484; 85025; 85027; 85379; 85610; 85730; 87040; 87635; 87804; 90471; 90686; 93005; 93010; 96361; 96365; 96368; 99285; C9803; G0008; J0696; J1644; J3490; J7030; S0028